=== PATIENT | female | born 1980 | race Caucasian/White ===

== ENCOUNTER 2021-11-14 21:10 | Emergency (ER) | payer SELFPAY ==
[~2021-11-14] VITALS: Ht 165.1 cm; Wt 59.9 kg
[2021-11-14] MEDS ORDERED: METHYLPREDNISOLONE SOD SUCC 125 MG/2ML VIAL IV ONE (21:30)
[2021-11-14] MEDS ORDERED: ALBUTEROL/IPRATROPIUM 3 ML NEB NEB ONE (21:30)
[2021-11-14] MEDS ORDERED: ALBUTEROL/IPRATROPIUM 3 ML NEB ONE (21:37)
[2021-11-14] MEDS ORDERED: METHYLPREDNISOLONE SOD SUCC 125 MG/2ML VIAL ONE (21:46)
[2021-11-14] MEDS ORDERED: DEXAMETHASONE4 MG PO (22:18)
[2021-11-14] MEDS ORDERED: ALBUTEROL1.25 MG/3 NEB (22:18)
== END 2021-11-14 23:05 | disposition home or self-care (01) ==
LOC: FSED 21:16
DX: J45.909 Unspecified asthma, uncomplicated (principal); R06.02 Shortness of breath; R05.9 Cough, unspecified
CPT/HCPCS: 71045; 99283; J2930